=== PATIENT | male | born 1990 | race African-American/Black ===

== ENCOUNTER 2021-01-02 09:48 | Emergency (ER) | payer MEDICAID, OTHER ==
[~2021-01-02] VITALS: Ht 177.8 cm; Wt 60.0 kg
[2021-01-02] MEDS ORDERED: ONDANSETRON HCL 4MG/2ML INJ IV STA (10:42)
[2021-01-02] MEDS ORDERED: FAMOTIDINE 20MG/2ML VIAL IV STA (10:42)
[2021-01-02] MEDS ORDERED: SODIUM CHLORIDE 0.9% 1,000 ML IV ONE (10:45)
[2021-01-02] MEDS ORDERED: KETOROLAC 30MG/ML VIAL IV ONE (10:45)
[2021-01-02 11:03] LABS: CHLORIDE 112 mEq/L (98-107)
[2021-01-02 11:04] LABS: BASOPHILS % 0.4 % (0.0-2.0); HEMATOCRIT. 43.6 % (42.0-52.0); HEMOGLOBIN. 14.3 g/dL (14.0-18.0); LYMPHOCYTES % 19.7 % (20.0-50.0); MEAN CORPUSCULAR HEMOGLOBIN 31.1 pg (28.0-32.0); MEAN CORPUSCULAR VOLUME 94.9 fL (80.0-94.0); MEAN PLATELET VOLUME 9.3 fl (7.4-10.4); NEUTROPHILS % 74.9 % (40.0-76.0); PLATELET 299 x1000/uL (130-400); RED BLOOD CELL COUNT 4.59 mill/uL (4.7-6.1); RED CELL DISTRIBUTION WIDTH 13.2 % (11.6-14.6)
[2021-01-02] MEDS ORDERED: POTASSIUM CHLORIDE 20MEQ TABLET SR PO NR (11:30)
[2021-01-02] MEDS ORDERED: METOCLOPRAMIDE HCL 10MG/2ML VIAL IV ONE (11:45)
[2021-01-02] MEDS ORDERED: DIPHENHYDRAMINE 50MG/ML VIAL IV ONE (11:45)
[2021-01-02] MEDS ORDERED: ONDA4TAB5 MT (13:16)
[2021-01-02 13:28] VITALS: BP 146/84
== END 2021-01-02 13:34 | disposition home or self-care (01) ==
LOC: ER 09:48
DX: R11.10 Vomiting, unspecified (principal); E87.6 Hypokalemia; F17.290 Nicotine dependence, other tobacco product, uncomplicated; F12.10 Cannabis abuse, uncomplicated
CPT/HCPCS: 36415; 80053; 83690; 85025; 93005; 96361; 96374; 96375; 99284; 99406; J1200; J1885; J2405; J2765; J3490; J7030